=== PATIENT | male | born 1995 | race Caucasian/White ===

== ENCOUNTER 2017-08-15 08:50 | Inpatient (IN) ==
[2017-08-15] MEDS ORDERED: HYDROmorphone 2 MG/1 ML VIAL IV STA (09:45)
[2017-08-15] MEDS ORDERED: ONDANSETRON 4 MG/2 ML VIAL IV STA (09:45)
[2017-08-15 09:58] LABS: Basophils # 0.1 10*3/uL (0.0-0.2); Basophils % 0.6 % (0.0-0.8); Eosinophils # 0.1 10*3/uL (0.0-0.87); Eosinophils % 0.9 % (0.00-10.9); Hematocrit 42.2 VOL% (42.0-52.0); Hemoglobin 14.9 GM/DL (14.0-18.0); Immature Granulocytes Absolute 0.08 #; Lymphocytes # 1.3 10*3/uL (1.4-4.0); Lymphocytes % 16.1 % (21.2-54.2); Mean Corpuscular HGB Conc 35.3 GM/DL (32-36); Mean Corpuscular Hemoglobin 31 PG (27-34); Mean Corpuscular Volume 88.5 FL (87-102); Mean Platelet Volume 10.4 FL (9.6-12.0); Monocytes # 0.8 10*3/uL (0.11-0.8); Monocytes % 9.1 % (1.7-12.7); Neutrophils # 5.9 10*3/uL (1.4-7.4); Neutrophils % 72.3 % (38.7-73.9); Platelet Count 191 T/CUMM (130-400); Red Blood Count 4.77 MC/CUMM (3.8-5.5); Red Cell Distribution Width 11.7 % (9.3-17.3); White Blood Count 8.2 T/CUMM (4-12)
[2017-08-15 10:05] LABS: PT Patient Result 10.2 SECS; Partial Thromboplastin Time 24.4 SECS (0-40)
[2017-08-15 10:13] LABS: Alanine Aminotransferase 72 U/L (16-61); Albumin 3.7 G/DL (3.4-5.0); Alkaline Phosphatase 92 U/L (45-117); Amylase 111 U/L (25-115); Aspartate Amino Transferase 44 U/L (0-37); Blood Urea Nitrogen 11 MG/DL (7-18); Calcium 9.4 MG/DL (8.5-10.1); Glucose 88 MG/DL (74-106); Osmolality,Calculated 274.5 MOS/KG (273-304); Potassium 4.3 MMOL/L (3.5-5.1); Sodium 139 MMOL/L (136-145); Total Protein 6.7 G/DL (6.4-8.3)
[2017-08-15] MEDS ORDERED: HYDROmorphone 2 MG/1 ML VIAL ONE (10:18)
[2017-08-15] MEDS ORDERED: ONDANSETRON 4 MG/2 ML VIAL ONE (10:18)
[2017-08-15 10:43] LABS: Allen Test Positive; Pt O2 Delivery Device Room Air
[2017-08-15 10:43] LABS: Apearance,Urine Slightly Hazy (Clear); Urine Color Yellow (Yellow)
[2017-08-15 10:44] LABS: Bilirubin,Urine Negative (Negative); Blood, Urine 0.03 mg/dL (Negative); Glucose,Urine (UA) Negative (Negative); Ketones,Urine Negative (Negative); Nitrite,Urine Negative (Negative); Protein,Urine 30 MG/DL; Urine Urobilinogen 0.2 EU/DL (0.2-1.0)
[2017-08-15 10:45] LABS: ABG Base Excess 2.7 MMOL/L (-2.5-2.5); ABG HCO3 26.7 MMOL/L (20-26); ABG Oxygen Saturation 96.1 % (95-100); ABG PCO2 46.8 MM HG (35-48); ABG PH 7.392 (7.35-7.45); ABG PO2 79.8 MM HG (80-95); ABG TCO2 24.2 MMOL/L (23-27)
[2017-08-15 10:52] LABS: Barbiturates Screen,Urine Negative (Negative); Benzodiazepines Screen,Urine Negative (Negative); Cannabinoid Screen,Urine Negative (Negative); Opiate Screen,Urine Negative (Negative); Phencyclidine Screen,Urine Negative (Negative)
[2017-08-15 11:40] LABS: Mucus,Urine Occasional /LPF (Occasional); RBC,Urine 6 /HPF (0-4); WBC,Urine 4 /HPF (0-6)
[2017-08-15] MEDS ORDERED: ACETAMINOPHEN 325 MG TABLET PO PRN (14:15)
[2017-08-15] MEDS ORDERED: ONDANSETRON 4 MG/2 ML VIAL IV PRN (14:15)
[2017-08-15] MEDS ORDERED: INFLUENZA VIRUS VACCINE 0.5 ML SYRINGE IM ONE (15:34)
[2017-08-15] MEDS: LACTATED RINGERS 1,000 ML IV SCH ×2 (15:40→23:14)
[2017-08-15] MEDS ORDERED: LACTATED RINGERS 1,000 ML IV ONE (17:38)
[2017-08-15] MEDS: KETOROLAC 15 MG/1 ML VIAL IV PRN (17:52)
[2017-08-15 18:10] LABS: Hematocrit 40.7 VOL% (42.0-52.0); Hemoglobin 14.6 GM/DL (14.0-18.0)
[2017-08-16] MEDS: KETOROLAC 15 MG/1 ML VIAL IV PRN (05:00)
[2017-08-16] MEDS: LACTATED RINGERS 1,000 ML IV SCH (06:32)
[2017-08-16 07:39] LABS: Basophils % 0.4 % (0.0-0.8); Eosinophils # 0.1 10*3/uL (0.0-0.87); Eosinophils % 0.7 % (0.00-10.9); Immature Granulocytes % 0.4 %; Immature Granulocytes Absolute 0.03 #; Lymphocytes # 1.5 10*3/uL (1.4-4.0); Lymphocytes % 19.4 % (21.2-54.2); Mean Corpuscular HGB Conc 35.3 GM/DL (32-36); Mean Corpuscular Hemoglobin 31 PG (27-34); Mean Corpuscular Volume 87.6 FL (87-102); Mean Platelet Volume 10.2 FL (9.6-12.0); Monocytes % 13.1 % (1.7-12.7); Neutrophils # 4.9 10*3/uL (1.4-7.4); Platelet Count 145 T/CUMM (130-400); Red Blood Count 3.88 MC/CUMM (3.8-5.5); Red Cell Distribution Width 11.7 % (9.3-17.3); White Blood Count 7.5 T/CUMM (4-12)
[2017-08-16 08:11] LABS: Osmolality,Calculated 274.7 MOS/KG (273-304); Potassium 3.8 MMOL/L (3.5-5.1)
[2017-08-16] MEDS: PANTOPRAZOLE 40 MG TABLET PO SCH (10:00)
[2017-08-17] MEDS: KETOROLAC 15 MG/1 ML VIAL IV PRN ×2 (03:49→11:01)
[2017-08-17 07:03] LABS: Basophils # 0.1 10*3/uL (0.0-0.2); Basophils % 0.6 % (0.0-0.8); Eosinophils # 0.2 10*3/uL (0.0-0.87); Eosinophils % 2.6 % (0.00-10.9); Hematocrit 35.4 VOL% (42.0-52.0); Hemoglobin 12.6 GM/DL (14.0-18.0); Immature Granulocytes % 0.7 %; Immature Granulocytes Absolute 0.06 #; Lymphocytes # 1.8 10*3/uL (1.4-4.0); Lymphocytes % 20.1 % (21.2-54.2); Mean Corpuscular HGB Conc 35.6 GM/DL (32-36); Mean Corpuscular Hemoglobin 31 PG (27-34); Mean Corpuscular Volume 88.1 FL (87-102); Mean Platelet Volume 10.5 FL (9.6-12.0); Monocytes # 1.3 10*3/uL (0.11-0.8); Monocytes % 14.9 % (1.7-12.7); Neutrophils # 5.3 10*3/uL (1.4-7.4); Neutrophils % 61.1 % (38.7-73.9); Platelet Count 156 T/CUMM (130-400); Red Blood Count 4.02 MC/CUMM (3.8-5.5); Red Cell Distribution Width 11.4 % (9.3-17.3); White Blood Count 8.7 T/CUMM (4-12)
[2017-08-17 07:27] LABS: Calcium 8.3 MG/DL (8.5-10.1); Osmolality,Calculated 275.5 MOS/KG (273-304); Potassium 4.2 MMOL/L (3.5-5.1)
[2017-08-17] MEDS: PANTOPRAZOLE 40 MG TABLET PO SCH (09:35)
[2017-08-17 12:49] VITALS: BP 113/75
== END 2017-08-17 14:15 | disposition home or self-care (01) | DRG 923 ==
LOC: N.ED 08:50 → N.EDINP 10:45 → N.3E 13:15
PROVIDERS: ADMIT Surgery; ATTEND Surgery